=== PATIENT | female | born 1955 | race Caucasian/White ===

== ENCOUNTER 2019-10-04 10:10 | Outpatient (CLI) | payer MEDICARE, SELFPAY ==
--- NOTE | ~2019-10-04 | MM_ITS ---
EXAMINATION: MM screening emily BI w da HISTORY: Screening mammogram TECHNIQUE: Craniocaudal and mediolateral oblique 3-D tomosynthesis images were obtained and synthetic 2-D images were generated. CAD analysis was submitted and interpreted. COMPARISON: 06/12/2018, 06/06/2017 bilateral digital screening mammogram examinations 05/29/2016 bilateral diagnostic digital mammogram and Limited bilateral breast ultrasound. BREAST PARENCHYMAL COMPOSITION: There are scattered areas of fibroglandular density.. FINDINGS: There is stable mild asymmetry in the upper outer quadrant left breast; history of prior le ft benign breast biopsy, which likely accounts for this appearance. There is no evidence of suspiciou s mass, calcification, or architectural distortion to suggest malignancy in either breast. There has been no suspicious interval change. IMPRESSION: 1. No mammographic evidence of malignancy. 2. Recommend routine screening mammography in one year. BI-RADS Category 2: Benign finding(s). Reviewed, dictated and finalized at location A.
== END 2019-10-04 10:11 | disposition home or self-care (01) ==
LOC: ANHIMG 10:27
PROVIDERS: Visit Provider Obstetrics & Gynecology Gynecology
DX: Z12.31 Encounter for screening mammogram for malignant neoplasm of breast (principal)
CPT/HCPCS: 77063; 77067

== ENCOUNTER 2020-10-05 15:34 | Outpatient (CLI) | payer MEDICARE, SELFPAY ==
--- NOTE | ~2020-10-05 | MM_ITS ---
EXAMINATION: MM screening emily BI w da HISTORY: Screening TECHNIQUE: Craniocaudal and mediolateral oblique 3-D tomosynthesis images were obtained and synthetic 2-D images were generated. CAD analysis was submitted and interpreted. COMPARISON: Comparison to multiple prior studies sequentially, with oldest reviewed study dated 08/30. BREAST PARENCHYMAL COMPOSITION: There are scattered areas of fibroglandular density. FINDINGS: There is no evidence of suspicious mass, calcification, or architectural distortion to sugg est malignancy in either breast. There has been no suspicious interval change. IMPRESSION: 1. No mammographic evidence of malignancy. 2. Recommend routine screening mammography in one year. BI-RADS Category 1: Negative Reviewed, dictated and finalized at location A.
== END 2020-10-05 15:35 | disposition home or self-care (01) ==
PROVIDERS: Visit Provider Obstetrics & Gynecology Gynecology
DX: Z12.31 Encounter for screening mammogram for malignant neoplasm of breast (principal)
CPT/HCPCS: 77063; 77067

== ENCOUNTER 2021-11-06 10:28 | Outpatient (CLI) | payer MEDICARE, SELFPAY ==
--- NOTE | ~2021-11-06 | MM_ITS ---
EXAMINATION: MM screening emily BI w da HISTORY: Screening mammogram TECHNIQUE: Craniocaudal and mediolateral oblique 3-D tomosynthesis images were obtained and synthetic 2-D images were generated. CAD analysis was submitted and interpreted. COMPARISON: 10/05/2020, 10/04/2019, 06/12/2018 bilateral screening mammogram examinations BREAST PARENCHYMAL COMPOSITION: There are scattered areas of fibroglandular density. FINDINGS: History of benign upper outer quadrant left breast benign biopsy There is no evidence of suspicious m ass, calcification, or architectural distortion to suggest malignancy in either breast. There has bee n no suspicious interval change. IMPRESSION: 1. No mammographic evidence of malignancy. 2. Recommend routine screening mammography in one year. BI-RADS Category 1: Negative Reviewed, dictated and finalized at location A.
== END 2021-11-06 10:29 | disposition home or self-care (01) ==
PROVIDERS: Visit Provider Obstetrics & Gynecology Gynecology
DX: Z12.31 Encounter for screening mammogram for malignant neoplasm of breast (principal)
CPT/HCPCS: 77063; 77067

== ENCOUNTER 2023-10-27 13:06 | Outpatient (CLI) | payer MEDICARE, SELFPAY ==
--- NOTE | ~2023-10-27 | MM_ITS ---
EXAMINATION: MM screening emily BI w da HISTORY: Screening TECHNIQUE: Craniocaudal and mediolateral oblique 3-D tomosynthesis images were obtained and synthetic 2-D images were generated. CAD analysis was submitted and interpreted. COMPARISON: Comparison to multiple prior studies sequentially, with oldest reviewed study dated 05/29. BREAST PARENCHYMAL COMPOSITION: Not dense: There are scattered areas of fibroglandular density. FINDINGS: Left breast asymmetries are stable. There is no evidence of suspicious mass, calcification, or architectural distortion to suggest malignancy in either breast. There has been no suspicious int erval change. IMPRESSION: 1. No mammographic evidence of malignancy. 2. Recommend routine screening mammography in one year. BI-RADS Category 1: Negative Reviewed, dictated and finalized at location B.
== END 2023-10-27 13:07 | disposition home or self-care (01) ==
LOC: ANHIMG 13:09
PROVIDERS: Visit Provider Nurse Practitioner Women's Health
DX: Z12.31 Encounter for screening mammogram for malignant neoplasm of breast (principal)
CPT/HCPCS: 77063; 77067

== ENCOUNTER 2024-12-14 15:02 | Outpatient (CLI) | payer MEDICARE, SELFPAY ==
--- NOTE | ~2024-12-14 | MM_ITS ---
EXAMINATION: MM screening emily BI w da HISTORY: Screening TECHNIQUE: Craniocaudal and mediolateral oblique 3-D tomosynthesis images were obtained and synthetic 2-D images were generated. CAD analysis was submitted and interpreted. COMPARISON: Comparison to multiple prior studies sequentially, with oldest reviewed study dated 06/06. BREAST PARENCHYMAL COMPOSITION: Not dense: There are scattered areas of fibroglandular density. FINDINGS: There is no evidence of suspicious mass, calcification, or architectural distortion to sugg est malignancy in either breast. There has been no suspicious interval change. IMPRESSION: 1. No mammographic evidence of malignancy. 2. Recommend routine screening mammography in one year. BI-RADS Category 1: Negative Reviewed, dictated and finalized at location B.
--- OUTSIDE RECORDS SUMMARY | 2024-12-14 15:05 | XMS_ITS | Clinical Summary ---
Author Organization [facility] Address [address] [place] [address] Care Team Providers Care Manager Commercial Sales Name Role Phone Paulo Jensen MD Unavailable [phone] Sagr[address] Farris Primary Care Provider [phone] Source Comments [facility],non-owned Affiliates and Associated Physician Practices is amultiple site organization consisting of ambulatory clinics and hospital sitesin [place], [place], [place] and [place]. This disclosure is being madepursuant to the Care Everywhere program and may not contain all information available regarding this patient. Last updated 18.[facility] Allergies Active Allergy Reactions Criticality Noted Date Comments Metronidazole Nausea and/or Vomiting 08/18/2018 severe stomach pains Medications * Be aware that medications may not be up to date on this document. Alwaysverify current medications with the patient. Calcium Carb-Cholecalci ferol (CALCIUM 600 + D PO) Active rosuvastatin (Crestor) 20 MG tablet Take 1 (one) tablet by mouth at bedtime Active vitamin D, ergocalciferol, (Drisdol) 1.25 MG (88105 UT) capsule Take 1 (one) capsule by mouth Two times a week 4 Active solifenacin (Vesicare) 5 MG tablet Take 1 (one) tablet by mouth once daily Active Multiple Vitamins-Minera ls (EYE VITAMINS PO) Take 2 capsules by mouth 2 times daily Active cetirizine (ZyrTEC) 10 MG tablet Take 1 (one) tablet by mouth once daily Active Multiple Vitamins-Minera ls (EYE VITAMINS & MINERALS PO) Take 1 capsule by mouth once daily Active BIOTIN PO Take 1 capsule by mouth once daily Active diphenhydrAMINE -APAP, sleep, (ACETAMINOPHEN PM PO) Take 3 tablets by mouth at bedtime Active acetaminophen (Tylenol) 500 MG capsule Take 2 (two) capsules by mouth 3 times daily Take for ten days then as needed. 4 Active omeprazole (PriLOSEC) 20 MG capsule Take 1 (one) capsule by mouth daily before breakfast for 42 days 42 capsule 04/27/2024 12:03 PM CENTRAL SCHEDULER 4 Active oxyCODONE, immediate release, (Roxicodone) 10 MG tabletIndicatio ns:Postoperativ e pain Take 0.5 (one-half) tablet to 1 (one) tablet by mouth every 4 hours as needed for Pain 42 tablet 4 Active Active Problems Problem Noted Date Diagnosed Date Arthritis of knee 04/26/2024 Trochanteric bursitis of both hips 09/13/2016 Osteoarthrosis involving lower leg 09/28/2013 Overview (08/12/2015): 2015 IMO Updt Encounters Date Type Department Care Team Description 10/26/2024 11:30 AM CDT Office Visit [facility] [address] [place] [address], [address] [address] Paulo Jensen MD Chronic pain of left knee (Primary Dx) from Last 3 Months Social History Tobacco Use Types Packs/Day Years Used Date Smoking Tobacco: Never Smokeless Tobacco: Never Tobacco Cessation:Counseling Given: Not Answered Alcohol Use Standard Drinks/Week Comments Yes 15 (1 standard drink = 0.6 oz pu re alcohol) OASIS D0700: Social Isolation Answer Da te Recorded Frequency of experiencing loneliness or isolatio n Never 05/13/2024 OASIS A1250: Transportation Answer Date Recorded Lack of Transportation (Medical) No 05/13/2024 Lack of Transportation (Non-Medical) No 05/13/2024 Patient Unable or Declines to Respond No 05/13/2024 OASIS B1300: Health Literacy Answer Brian e Recorded Frequency of needing help to read materials from doctor or pharmacy Never 05/13/2024 PHQ-2 Answer Date Recorded Patient Health Questionnaire-2 Score 0 10/19/2024 Comments Unknown Sex and Gender Information Value Date Recorded Sex Assigned at Not on file Legal Sex Female 8:52 AM CDT Gender Identity Not on file Sexual Orientation Not on file Last Filed Vital Signs Vital Sign Reading Time Taken Comments Blood Pressure 142/80 05/07/2024 10:25 AM CENTRAL SCHEDULER Pulse 84 05/07/2024 10:25 AM CENTRAL SCHEDULER Temperature 36.8 C (98.2 F) 05/07/2024 10:25 AM CENTRAL SCHEDULER Respiratory Rate 18 05/07/2024 10:25 AM CENTRAL SCHEDULER Oxygen Saturation 93% 05/07/2024 10:25 AM CENTRAL SCHEDULER Inhaled Oxygen Concentration - - Weight 61.2 kg (135 lb) 10/26/2024 11:23 AM CDT Height 167.6 cm (5' 6) 10/26/2024 11:23 AM CDT Body Mass Index 21.79 10/26/2024 11:23 AM CDT Plan of Treatment Health Maintenance Due Date Last Done Comments COLOGUARD (AGES 45-75) - COLON CA SCREENING 1953 CT COLONOGRAPHY - COLON CA SCREENING 1955 FIT - COLON CA SCREENING 1955 FLEX SIG - COLON CA SCREENING 1953 DTAP/TDAP/TD VACCINES (1 - Tdap) 1972 PNEUMOCOCCAL VACCINE 50+ (1 of 1 - PCV) 2003 ZOSTER VACCINE (1 of 2) 2003 COVID-19 VACCINE (5 - season) 2024 02/07/2022, 04/09/2021, 07/25/2020, Additional history exists MEDICARE AWV CALENDAR YEAR 2024 INFLUENZA VACCINE (#1) 2025 , 04/16/2021, 04/01/2019, Additional history exists MAMMOGRAM 10/26/2025 10/27/2023, 06/12/2018 Respiratory Syncytial Virus (RSV) Vaccine Pt: or over 60 yrs (1 - 1-dose 75+ series) 2028 COLON MONITORING 02/27/2031 02/27/2021 COLONOSCOPY - COLON CA SCREENING 02/27/2031 02/27/2021 Colorectal Cancer Screening 02/27/2031 HEPATITIS C SCREENING Completed 03/27/2017 BONE DENSITY TESTING Completed 08/12/2022 DEPRESSION SCREENING Completed 06/07/2024, 01/20/20 HEPATITIS B VACCINE Aged Out No longe r eligible based on patient's age to complete this topic HIB VACCINE Aged Out No longer eligi ble based on patient's age to complete this topic HPV VACCINE Aged Out No longer eligi ble based on patient's age to complete this topic MENINGOCOCCAL (Group B) VACCINE SHARED DECISION-MAKING Aged Out No longer eligible based on patient's age to complete this topic MENINGOCOCCAL GROUPS A/C/Y/W VACCINE Aged Out No longer eligible based on patient's age to complete this topic Medical Devices Implanted Type Area Caving Guide Device Identifier Shelf Expiration Date Model / Serial / Lot Cmnt Bone Plc R 40gm Grn Implanted:Qty: 1 on 04/26/2024 by Paulo Jensen MD at [facility] Right: Knee [employer] 06/18/2026 [id number] / / [id number] Cmpnt Ptlr Std 28mm 3 Pg Kn Ser A Implanted:Qty: 1 on 04/26/2024 by Paulo Jensen MD at [facility] Right: Knee [employer] 01/07/2029 [id number] / / [id number] Tray Tib 71mm Kn Cocr I Beam Implanted:Qty: 1 on 04/26/2024 by Paulo Jensen MD at [facility] Right: Knee [employer] 08/04/2033 [id number] / / [id number] Cmpnt Fem Kn Rt Cr Cmnt Prm Vngrd Intlk 65 Mm Implanted:Qty: 1 on 04/26/2024 by Paulo Jensen MD at [facility] Right: Knee [employer] 03/12/2034 [id number] / / [id number] Brng 30f23aq Vngrd Vivacit-E Kn Ant Stab Implanted:Qty: 1 on 04/26/2024 by Paulo Jensen MD at [facility] Right: Knee [employer] 01/16/2029 [id number] / / [id number] Insurance [employer] MEDICARE ADV [facility] Care Address: [address] [address] Advance Directives Documents on File Type Date Recorded Patient Oxygen Therapist Expl anation Code Status/Resuscitation 04/28/2024 10:12 PM * Full Code (Latest Code Status on File) Date Activated Date Inactivated Comments 04/26/2024 11:02 AM 04/27/2024 1:48 PM Care Teams Manager Commercial Sales Relationship Specialty Start Date End Date Sagrario Farris PA [address] [place] [address] PCP - General Physician Commercial Property Administrator 01/20/24 [place] [id number] [place] [address] Orthopedic Surgery 09/28/13
== END 2024-12-14 15:03 | disposition home or self-care (01) ==
PROVIDERS: Visit Provider Obstetrics & Gynecology Gynecology
DX: Z12.31 Encounter for screening mammogram for malignant neoplasm of breast (principal)
CPT/HCPCS: 77063; 77067